=== PATIENT | male | born 1975 | race Caucasian/White ===

== ENCOUNTER 2020-02-15 17:24 | Emergency (ER) | payer BC ==
[2020-02-15] MEDS ORDERED: Clindamycin HCl 150 MG Cap PO ONE (17:25)
--- NOTE | 2020-02-15 17:30 | EDM.PDOC ---
ED HPI GENERAL MEDICAL PROBLEM - General Chief Complaint: General Stated Complaint: ? boil Time Seen by Provider: 02/15/20 17:27 Source of Information: Reports: Patient History Limitations: Reports: No Limitations - History of Present Illness INITIAL COMMENTS - FREE TEXT/NARRATIVE: This patient is a 44 year old male that presents to the ER. Patient reports that for several weeks he had a spot in his back. He reports over the past week or so, its become more painful. He reports he tried to stick it with two needles. Now it is red. Duration: Week(s): ("several weeks"), Getting Worse Location: Reports: Back Front/Back Body Image: 1 - small red inflamed, hard area. Severity: Mild Improves with: Reports: None Worsens with: Reports: None Associated Symptoms: Denies: Confusion, Chest Pain, Cough, cough w sputum, Diaphoresis, Fever/Chills, Headaches, Loss of Appetite, Malaise, Nausea/Vomiting , Rash, Seizure, Shortness of Breath, Syncope, Weakness Left Lower Back Pain Score (Numeric/FACES): 8 - Related Data Allergies Allergy/AdvReac Type Severity Reaction Status Date / Time No Known Allergies Allergy Verified 02/15/20 17:26 Home Meds: Home Meds Clindamycin HCl 300 mg PO QID #22 capsule 02/15/20 [Rx] Social & Family History - Tobacco Use Smoking Status *Q: Current Every Day Smoker Years of Tobacco use: 23 Packs/Tins Daily: 1 - Caffeine Use Caffeine Use: Reports: Soda - Recreational Drug Use Recreational Drug Use: No ED ROS GENERAL - Review of Systems Review Of Systems: See Below Constitutional: Reports: No Symptoms. Denies: Fever HEENT: Reports: No Symptoms Respiratory: Reports: No Symptoms Cardiovascular: Reports: No Symptoms Endocrine: Reports: No Symptoms GI/Abdominal: Reports: No Symptoms : Reports: No Symptoms Musculoskeletal: Reports: No Symptoms Skin: Reports: Erythema (lower left central back red, raised area. ) Neurological: Reports: No Symptoms Psychiatric: Reports: No Symptoms Hematologic/Lymphatic: Reports: No Symptoms Immunologic: Reports: No Symptoms ED EXAM, GENERAL - Physical Exam Exam: See Below Exam Limited By: No Limitations General Appearance: Alert, WD/WN, No Apparent Distress Respiratory/Chest: No Respiratory Distress, Lungs Clear, Normal Breath Sounds, No Accessory Muscle Use Cardiovascular: Normal Peripheral Pulses, Regular Rate, Rhythm, No Edema, No Gallop, No JVD, No Murmur, No Rub Peripheral Pulses: 2+: Radial (L), Radial (R) Back Exam: Full Range of Motion, Other (see skin). No: Paraspinal Tenderness, Vertebral Tenderness Extremities: Normal Inspection, Normal Range of Motion, Non-Tender, No Pedal Edema, Normal Capillary Refill Neurological: Alert, Oriented Psychiatric: Normal Affect, Normal Mood Skin Exam: Warm, Dry, Intact, Normal Color, No Rash, Erythema (left lower back small about nickel size circular red raised area, with two small puncture sites consistent with needle. Mild surrounding redness small. No fluctulance to drain. Hard and ore cellulitic.) Lymphatic: No Adenopathy Course - Vital Signs Last Recorded V/S: Last Vital Signs Temp 96.7 F L 02/15/20 17:24 Pulse 75 02/15/20 17:24 Resp 16 02/15/20 17:24 BP 146/78 H 02/15/20 17:24 Pulse Ox 97 02/15/20 17:24 - Orders/Labs/Meds Meds: Medications Discontinued Medications Generic Name Dose Route Start Last Admin Trade Name Angelq PRN Reason Stop Dose Admin Clindamycin HCl 2 packet 02/15/20 17:36 02/15/20 17:41 Take Home: Clindamycin Hcl 150 Mg, 6 Cap Pack PO 02/15/20 17:37 2 packet ONETIME ONE Administration Departure - Departure Time of Disposition: 17:44 Disposition: Home, Self-Care 01 Condition: Good Clinical Impression: Cellulitis Qualifiers: Site of cellulitis: trunk Site of cellulitis of trunk: back Qualified Code(s): L03.312 - Cellulitis of back [any part except buttock] - Discharge Information *PRESCRIPTION DRUG MONITORING PROGRAM REVIEWED*: Not Applicable *COPY OF PRESCRIPTION DRUG MONITORING REPORT IN PATIENT TYSHAWN: Not Applicable Prescriptions: Clindamycin HCl 300 mg PO QID #22 capsule Instructions: Cellulitis, Adult, [id number] Forms: ED Department Discharge Additional Instructions: Followup with your primary care provider Sunday/Sunday for recheck Return to the ER for worsening of condition or any emergent concerns such as fever, vomiting, significant increase in redness Clindamycin 150mg 2 pills four times a day until gone #12 take home: 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
[2020-02-15] MEDS ORDERED: Take Home: Clindamycin HCl 150 MG Cap, 6 Cap Pack PO ONE (17:36)
== END 2020-02-15 17:50 | disposition home or self-care (01) ==
LOC: CC.ED 17:24
DX: L03.312 Cellulitis of back [any part except buttock and flank] (principal); F17.210 Nicotine dependence, cigarettes, uncomplicated
CPT/HCPCS: 99283; A9270-GY

== ENCOUNTER 2020-02-17 17:43 | Emergency (ER) | payer BC ==
[2020-02-17] MEDS ORDERED: Lidocaine 1% with EPINEPHrine 1:100,000 20 ML MDV INJECT ONE (18:08)
--- NOTE | 2020-02-17 18:13 | EDM.PDOC ---
ED HPI GENERAL MEDICAL PROBLEM - General Chief Complaint: General Stated Complaint: boil Time Seen by Provider: 02/17/20 18:06 Source of Information: Reports: Patient History Limitations: Reports: No Limitations - History of Present Illness INITIAL COMMENTS - FREE TEXT/NARRATIVE: Felipe is a 44 yo male who presents to the ED with concerns of a boil to his low back. States he was seen on Sunday in the ED and was given clindamycin. States it started festering on Sunday the 12 of February. Admits since Sunday it continues to get worse and is in a lot of discomfort from it. He denies any fevers. States he has had a headache the last few days but hasn't been getting any sleep d/t the discomfort. Admits he can't lay down. Location: Reports: Back Left Lower Back Pain Score (Numeric/FACES): 8 - Related Data Allergies Allergy/AdvReac Type Severity Reaction Status Date / Time No Known Allergies Allergy Verified 02/17/20 17:49 Home Meds: Home Meds Clindamycin HCl 300 mg PO QID #22 capsule 02/15/20 [Rx] Past Medical History - Infectious Disease History Infectious Disease History: Reports: None - Past Surgical History Musculoskeletal Surgical History: Reports: Other (See Below) Other Musculoskeletal Surgeries/Procedures:: knee and foot surgery Social & Family History - Tobacco Use Smoking Status *Q: Current Every Day Smoker Years of Tobacco use: 20 Packs/Tins Daily: 1 - Caffeine Use Caffeine Use: Reports: Soda - Recreational Drug Use Recreational Drug Use: No ED ROS GENERAL - Review of Systems Review Of Systems: Comprehensive ROS is negative, except as noted in HPI. Constitutional: Denies: Fever, Chills, Fatigue, Weight Loss HEENT: Reports: No Symptoms Respiratory: Reports: No Symptoms Cardiovascular: Reports: No Symptoms GI/Abdominal: Reports: No Symptoms : Reports: No Symptoms Musculoskeletal: Reports: Back Pain Skin: Reports: Lumps (low left back) Neurological: Reports: No Symptoms Psychiatric: Reports: No Symptoms ED EXAM, GENERAL - Physical Exam Exam: See Below Exam Limited By: No Limitations General Appearance: Alert, WD/WN, Mild Distress Skin Exam: Erythema (2cm boil to left low back with surrounding erythema measuring 8cm X 4cm. Area tender to palpation. Hard center), Increased Warmth, Wound/Incision ED I&D PROCEDURES - I&D Site: left low back Skin prep: Providone-Iodine (Betadine) Local anesthesia - Lidocaine (Xylocaine): 1% with EPI Local Anesthetic Volume: 5cc Area Incised With: 11 Blade (1cm in length incision X 1/2 cm deep) Drainage: Purulent, Bloody, Moderate Amount Probed to Break Up Loculations: Yes Packed With: 1/4 in. Iodoform Sterile Dressing: Adhesive Dressing, 4x4(s) Complications: No Course - Vital Signs Last Recorded V/S: Last Vital Signs Temp 98.2 F 02/17/20 17:44 Pulse 88 02/17/20 17:44 Resp 16 02/17/20 17:44 BP 142/83 H 02/17/20 17:44 Pulse Ox 98 02/17/20 17:44 - Orders/Labs/Meds Orders: Active Orders 24 hr Category Date Time Status Lidocaine 1% w/EPINEPHrine [Xylocaine 1% with Med 02/17/20 18:08 Once EPINEPHrine 1:100,000] 20 ml INJECT ONETIME ONE Departure - Departure Time of Disposition: 18:45 Disposition: Home, Self-Care 01 Clinical Impression: Abscess of lower back - Discharge Information Instructions: Incision and Drainage, Care After, Skin Abscess, [id number] Additional Instructions: 1) Keep bandage in place tonight 2) Follow up appointment tomorrow with Rosa Lnider at3:00pm for packing removal/ recheck 3) Continue with current antibiotic 4) Recommend taking 1000mg of Tylenol with 400-600mg of ibuprofen every 6 hours as needed. No more than 4000mg of Tylenol in 24 hours. Stephanie may have Tylenol (acetaminophen). 5) If any complications or concerns, advise reevaluation in ED Sepsis Event Note - Evaluation Sepsis Screening Result: No Definite Risk - Focused Exam Vital Signs: Vital Signs Temp Pulse Resp BP Pulse Ox 02/17/20 17:44 98.2 F 88 16 142/83 H 98 Date Exam was Performed: 02/17/20 Time Exam was Performed: 18:08 - Problem List & Annotations (1) Abscess of lower back SNOMED Code(s): 187894379 Code(s): L02.212 - CUTANEOUS ABSCESS OF BACK [ANY PART, EXCEPT BUTTOCK] Status: Acute (2) Cellulitis SNOMED Code(s): 551369746 Code(s): L03.90 - CELLULITIS, UNSPECIFIED Status: Acute Qualifiers: Site of cellulitis: trunk Site of cellulitis of trunk: back Qualified Code(s): L03.312 - Cellulitis of back [any part except buttock] - My Orders Last 24 Hours: My Active Orders 02/17/20 18:08 Lidocaine 1% w/EPINEPHrine [Xylocaine 1% with EPINEPHrine 1:100,000] 20 ml INJECT ONETIME ONE - Assessment/Plan Last 24 Hours: My Active Orders 02/17/20 18:08 Lidocaine 1% w/EPINEPHrine [Xylocaine 1% with EPINEPHrine 1:100,000] 20 ml INJECT ONETIME ONE Plan: Discussed findings with Felipe. Elected to proceed with I&D. No significant complications. Mild bleeding noted. Adhesive bandage applied. See procedure note and additional instructions for post care.
== END 2020-02-17 18:54 | disposition home or self-care (01) ==
LOC: CC.ED 17:43
DX: L02.212 Cutaneous abscess of back [any part, except buttock and flank] (principal); F17.210 Nicotine dependence, cigarettes, uncomplicated
CPT/HCPCS: 10061; 87070; 99283-25

== ENCOUNTER 2020-05-17 07:09 | Emergency (ER) | payer BC ==
[2020-05-17] MEDS ORDERED: Morphine 4 MG/ML VIAL IVPUSH ONE (08:04)
[2020-05-17] MEDS ORDERED: Ondansetron 4 MG/2 ML SDV IVPUSH STA (08:04)
[2020-05-17] MEDS ORDERED: Sodium Chloride 0.9% 1,000 ML IV ONE (08:05)
[2020-05-17] MEDS ORDERED: Iopamidol 755 Mg/ML 100 ML Bottle IVPUSH ONE (08:13)
--- NOTE | 2020-05-17 08:28 | EDM.PDOC ---
ED HPI GENERAL MEDICAL PROBLEM - General Chief Complaint: Abdominal Pain Stated Complaint: RT SIDE IS HURTING Time Seen by Provider: 05/17/20 07:55 Source of Information: Reports: Patient History Limitations: Reports: No Limitations - History of Present Illness INITIAL COMMENTS - FREE TEXT/NARRATIVE: This patient is a 44 year old male that presents to the ER. Patient reports that started yesterday at 3pm yesterday with right sided abdominal pain. Patient reports having nausea. Patient reports that he has been diaphoretic at times and decreased appetite. Patient reports the pain has been constant and worsened as time has progressed. Onset Date: 05/16/20 Onset Time: 15:00 Location: Reports: Abdomen Severity: Moderate Improves with: Reports: None Worsens with: Reports: None Associated Symptoms: Reports: Diaphoresis, Loss of Appetite, Nausea/Vomiting. Denies: Confusion, Chest Pain, Cough, cough w sputum, Fever/Chills, Headaches, Malaise, Rash, Seizure, Shortness of Breath, Syncope, Weakness Treatments OCCUPATIONAL THERAPIST HOME BASED: Reports: Other (see below) Other Treatments OCCUPATIONAL THERAPIST HOME BASED: DRANK A COKE TO SEE IF IT WOULD HELP, NO RELIEF Right Lower Abdomen Pain Score (Numeric/FACES): 4 - Related Data Allergies Allergy/AdvReac Type Severity Reaction Status Date / Time No Known Allergies Allergy Verified 05/17/20 07:34 Home Meds: Home Meds . [No Known Home Meds] 05/17/20 [History] Past Medical History HEENT History: Reports: Sinusitis, Other (See Below) Other HEENT History: frequent ear infections and sinus infections Genitourinary History: Reports: Other (See Below) Other Genitourinary History: patient states he has always been told he has trace blood in his urine each time he has lab/urine done Musculoskeletal History: Reports: Fracture - Infectious Disease History Infectious Disease History: Reports: None - Past Surgical History HEENT Surgical History: Reports: None Musculoskeletal Surgical History: Reports: Other (See Below) Other Musculoskeletal Surgeries/Procedures:: knee and foot surgery Social & Family History - Tobacco Use Smoking Status *Q: Current Every Day Smoker Years of Tobacco use: 25 Packs/Tins Daily: 1.5 - Caffeine Use Caffeine Use: Reports: Soda - Recreational Drug Use Recreational Drug Use: No ED ROS GENERAL - Review of Systems Review Of Systems: See Below Constitutional: Reports: Diaphoresis, Decreased Appetite. Denies: Fever HEENT: Reports: No Symptoms Respiratory: Reports: No Symptoms Cardiovascular: Reports: No Symptoms Endocrine: Reports: No Symptoms GI/Abdominal: Reports: Abdominal Pain, Nausea. Denies: Constipation, Diarrhea, Vomiting : Reports: No Symptoms Musculoskeletal: Reports: No Symptoms Skin: Reports: No Symptoms Neurological: Reports: No Symptoms Psychiatric: Reports: No Symptoms Hematologic/Lymphatic: Reports: No Symptoms Immunologic: Reports: No Symptoms ED EXAM, GI/ABD - Physical Exam Exam: See Below Exam Limited By: No Limitations General Appearance: Alert, WD/WN, No Apparent Distress Eyes: Bilateral: Normal Appearance Ears: Normal External Exam, Normal Canal, Hearing Grossly Normal, Normal TMs Nose: Normal Inspection, Normal Mucosa, No Blood Throat/Mouth: Normal Inspection, Normal Lips, Normal Teeth, Normal Gums, Normal Oropharynx, Normal Voice, No Airway Compromise Head: Atraumatic, Normocephalic Neck: Normal Inspection, Supple, Non-Tender, Full Range of Motion Respiratory/Chest: No Respiratory Distress, Lungs Clear, Normal Breath Sounds, No Accessory Muscle Use Cardiovascular: Normal Peripheral Pulses, Regular Rate, Rhythm, No Edema, No Gallop, No JVD, No Murmur, No Rub GI/Abdominal Exam: Normal Bowel Sounds, Soft, Rebound, Tender (RUQ, RLQ, Umbilical.). No: Guarding Back Exam: Normal Inspection, Full Range of Motion. No: CVA Tenderness (L), CVA Tenderness (R) Extremities: Normal Inspection, Normal Range of Motion, Non-Tender, No Pedal Edema, Normal Capillary Refill Neurological: Alert, Oriented Psychiatric: Normal Affect, Normal Mood Skin Exam: Warm, Dry, Intact, Normal Color, No Rash Course - Vital Signs Last Recorded V/S: Last Vital Signs Temp 98.4 F 05/17/20 07:28 Pulse 81 05/17/20 07:28 Resp 16 05/17/20 07:28 BP 136/82 05/17/20 07:28 Pulse Ox 98 05/17/20 07:28 - Orders/Labs/Meds Orders: Active Orders 24 hr Category Date Time Status Abdomen Pelvis w Cont [CT] Stat Exams 05/17/20 08:04 Taken CULTURE BLOOD [BC] Stat Lab 05/17/20 11:10 Received LACTIC ACID [CHEM] Stat Lab 05/17/20 11:10 Received Blood Culture x2 Reflex Set [OM.PC] Stat Oth 05/17/20 10:42 Ordered Labs: Laboratory Tests 05/17/20 05/17/20 05/17/20 Range/Units 08:12 08:12 08:25 WBC 15.7 H (5.0-10.0) 10^3/uL RBC 4.57 (4.50-6.00) 10^6/uL Hgb 13.9 L (14.0-18.0) g/dL Hct 41.0 (40.0-54.0) % MCV 89.7 (82.0-94.0) fL MCH 30.4 (27.0-32.0) pg MCHC 33.9 (33.0-38.0) g/dL RDW Coeff of Tre 13.6 (11.0-15.0) % Plt Count 285 (150-400) 10^3/uL Neut % (Auto) 73.1 (35-85) % Lymph % (Auto) 13.6 (10-55) % [place] % (Auto) 9.2 (0-16) % Eos % (Auto) 3.6 (0-5) % Baso % (Auto) 0.5 (0-3) % Neut # (Auto) 11.46 H (1.80-7.00) 10^3/uL Lymph # (Auto) 2.14 (1.00-4.80) 10^3/uL [place] # (Auto) 1.45 H (0.00-0.80) 10^3/uL Eos # (Auto) 0.56 H (0.00-0.45) 10^3/uL Baso # (Auto) 0.08 10^3/uL Sodium 139 (136-145) mEq/L Potassium 4.4 (3.5-5.0) mEq/L Chloride 107 H (98-106) mEq/L Carbon Dioxide 27 (21-32) mmol/L BUN 13 (7-18) mg/dL Creatinine 0.9 (0.7-1.3) mg/dL Est Cr Clr Drug Dosing 109.27 mL/min Estimated GFR (MDRD) > 60 (>=60) mL/min Glucose 112 H (75-99) mg/dL Calcium 8.5 (8.4-10.1) mg/dL Total Bilirubin 1.3 H (0.0-1.0) mg/dL AST 13 L (15-37) U/L ALT 22 (12-78) U/L Alkaline Phosphatase 89 (46-116) U/L Total Protein 6.6 (6.4-8.2) g/dL Albumin 3.4 (3.4-5.0) g/dL Amylase 44 (25-115) U/L Lipase 62 L (73-393) U/L Urine Color Judith (YELLOW) Urine Appearance Slightly cloudy (CLEAR) Urine pH 5.5 (4.5-8.0) Ur Specific [place] 1.025 H (1.003-1.020) Urine Protein Negative (NEGATIVE) mg/dL Urine Glucose (UA) Negative (NEGATIVE) mg/dL Urine Ketones Negative (NEGATIVE) mg/dL Urine Occult Blood Moderate H (NEGATIVE) Urine Nitrite Negative (NEGATIVE) Urine Bilirubin Negative (NEGATIVE) Urine Urobilinogen 0.2 (0.2-1.0) EU/dL Ur Leukocyte Esterase Negative (NEGATIVE) Urine RBC 10-20 H (0-5) /HPF Urine WBC 0-5 (0-5) /HPF Meds: Medications Discontinued Medications Generic Name Dose Route Start Last Admin Trade Name Freq PRN Reason Stop Dose Admin Sodium Chloride 1,000 mls @ 1,000 mls/hr 05/17/20 08:05 05/17/20 08:14 Normal Saline IV 05/17/20 09:04 1,000 mls/hr .BOLUS ONE Administration Piperacillin Sod/Tazobactam 100 mls @ 200 mls/hr 05/17/20 10:32 05/17/20 11:05 Sod 4.5 gm/ Sodium Chloride IV 05/17/20 11:01 200 mls/hr STAT ONE Administration Iopamidol 100 ml 05/17/20 08:13 05/17/20 08:33 Isovue-370 (76%) IVPUSH 05/17/20 08:14 100 ml ONETIME ONE Administration Morphine Sulfate 4 mg 05/17/20 08:04 05/17/20 08:13 Morphine IVPUSH 05/17/20 08:05 4 mg ONETIME ONE Administration Ondansetron HCl 4 mg 05/17/20 08:04 05/17/20 08:11 Zofran IVPUSH 05/17/20 08:05 4 mg NOW STA Administration - Radiology Interpretation Free Text/Narrative:: CT Abd/Pelvis: Acute appendicitis CT Results Date: 05/17/20 CT Results Time: 10:00 - Re-Assessments/Exams Free Text/Narrative Re-Assessment/Exam: 05/17/20 10:00am Patient originally requested transfer to [place]. I called and spoke to surgeon who requested [facility] to be hung and transferred 05/17/20 11:00am Patient has changed his mind on location of transfer and now request [place]. I called and spoke to Dr. Schaefer surgeon who reports to send the patient to the ER. I spoke to ER physician who reports to send him. 05/17/20 11:26 Patient explained risk vs benefits of transfer and has accepted the risks. Risk includes mvc, , worsening of condition or pain. Risk of staying in [place] include worsening of condition, sepsis, . The benefits of staying in [place] is close to home. The benefits of transfer are surgeon. Departure - Departure Time of Disposition: 10:30 Disposition: DC/Tfer to [facility] 02 Condition: Fair Clinical Impression: Appendicitis Qualifiers: Appendicitis type: acute appendicitis Acute appendicitis type: unspecified acute appendicitis type Qualified Code(s): K35.80 - Unspecified acute appendicitis - Discharge Information *PRESCRIPTION DRUG MONITORING PROGRAM REVIEWED*: Not Applicable *COPY OF PRESCRIPTION DRUG MONITORING REPORT IN PATIENT TYSHAWN: Not Applicable Forms: ED Department Discharge Sepsis Event Note (ED) - Evaluation Sepsis Screening Result: No Definite Risk - Focused Exam Vital Signs: Vital Signs Temp Pulse Resp BP Pulse Ox 05/17/20 07:28 98.4 F 81 16 136/82 98 - My Orders Last 24 Hours: My Active Orders 05/17/20 08:04 Abdomen Pelvis w Cont [CT] Stat 05/17/20 10:42 Blood Culture x2 Reflex Set [OM.PC] Stat 05/17/20 11:10 CULTURE BLOOD [BC] Stat LACTIC ACID [CHEM] Stat - Assessment/Plan Last 24 Hours: My Active Orders 05/17/20 08:04 Abdomen Pelvis w Cont [CT] Stat 05/17/20 10:42 Blood Culture x2 Reflex Set [OM.PC] Stat 05/17/20 11:10 CULTURE BLOOD [BC] Stat LACTIC ACID [CHEM] Stat Plan: PLEASE SEE RN NOTE FOR PFSH.
[2020-05-17 08:31] LABS: CHLORIDE,CL 107 mEq/L (98-106); SODIUM,NA 139 mEq/L (136-145)
[2020-05-17] MEDS ORDERED: Piperacillin/Tazobactam 4.5 GM in Sodium Chloride 0.9% 100 ML IV ONE (10:32)
== END 2020-05-17 11:55 ==
LOC: CC.ED 07:09
DX: K35.80 Unspecified acute appendicitis (principal); F17.210 Nicotine dependence, cigarettes, uncomplicated
CPT/HCPCS: 36415; 74177; 80053; 81001; 82150; 83605; 83690; 85025; 87040; 96361; 96365; 96375; 99285-25; J2270; J2405; J2543; J7030; J7050; Q9967

== ENCOUNTER 2020-05-28 18:32 | Emergency (ER) | payer BC ==
[2020-05-28] MEDS ORDERED: Diphtheria,Pertussis(Acell),Tetanus Vaccine 0.5 ML Syringe IM ONE (18:36)
--- NOTE | 2020-05-28 18:59 | EDM.PDOC ---
ED HPI GENERAL MEDICAL PROBLEM - General Chief Complaint: General Stated Complaint: Stepped on Nail Time Seen by Provider: 05/28/20 18:51 Source of Information: Reports: Patient History Limitations: Reports: No Limitations - History of Present Illness INITIAL COMMENTS - FREE TEXT/NARRATIVE: This patient is a 44 year old male that presents to the ER. Patient reports stepping on a nail to the right foot. Patient reports he was wearing boots and the nail was old and dirty. Denies other injuries. Onset: Today Onset Date: 05/28/20 Duration: Hour(s): (1) Location: Reports: Lower Extremity, Right (foot) Front/Back Body Image: 1 - puncture wound Severity: Moderate Improves with: Reports: None Worsens with: Reports: None Associated Symptoms: Reports: No Other Symptoms. Denies: Diaphoresis, Fever/Chills, Nausea/Vomiting - Related Data Allergies Allergy/AdvReac Type Severity Reaction Status Date / Time No Known Allergies Allergy Verified 05/28/20 18:33 Home Meds: Home Meds Sulfamethoxazole/Trimethoprim [Bactrim Ds Tablet] 1 each PO BID #20 tablet 05/28/20 [Rx] Past Medical History - Past Health History Medical/Surgical History: Denies Medical/Surgical History HEENT History: Reports: Sinusitis, Other (See Below) Other HEENT History: frequent ear infections and sinus infections Genitourinary History: Reports: Other (See Below) Other Genitourinary History: patient states he has always been told he has trace blood in his urine each time he has lab/urine done Musculoskeletal History: Reports: Fracture - Infectious Disease History Infectious Disease History: Reports: None - Past Surgical History HEENT Surgical History: Reports: None Musculoskeletal Surgical History: Reports: Other (See Below) Other Musculoskeletal Surgeries/Procedures:: knee and foot surgery Social & Family History - Family History Family Medical History: Noncontributory - Tobacco Use Smoking Status *Q: Current Every Day Smoker Years of Tobacco use: 20 Packs/Tins Daily: 1 - Caffeine Use Caffeine Use: Reports: None - Recreational Drug Use Recreational Drug Use: No ED ROS GENERAL - Review of Systems Review Of Systems: See Below Constitutional: Reports: No Symptoms HEENT: Reports: No Symptoms Respiratory: Reports: No Symptoms Cardiovascular: Reports: No Symptoms Musculoskeletal: Reports: Foot Pain (right foot) Skin: Reports: Wound (right foot bottom nail wound) Neurological: Reports: No Symptoms Psychiatric: Reports: No Symptoms ED EXAM, GENERAL - Physical Exam Exam: See Below Exam Limited By: No Limitations General Appearance: Alert, WD/WN, No Apparent Distress Eye Exam: Bilateral Eye: Normal Inspection Ear Exam: Bilateral Ear: Auricle Normal Nose: Normal Inspection Throat/Mouth: Normal Inspection, Normal Lips Head: Atraumatic, Normocephalic Respiratory/Chest: No Respiratory Distress, Lungs Clear Cardiovascular: Normal Peripheral Pulses, Regular Rate, Rhythm Peripheral Pulses: 2+: Posterior Tibial (L), Posterior Tibial (R), Dorsalis Pedis (R) Extremities: Normal Range of Motion, No Pedal Edema, Normal Capillary Refill, Ot her (small puncture wound site right bottom about mid 5th metatarsal region. No bleeding. No FB seen. Sensory/motor function intact. Neurovascular intact. Pulses +2, cap refill < 2 sec. ) Psychiatric: Normal Affect, Normal Mood Skin Exam: Warm, Dry, Normal Color, No Rash, Wound/Incision (puncuture wound right foot.) Course - Vital Signs Last Recorded V/S: Last Vital Signs Temp 98.9 F 05/28/20 18:29 Pulse 91 05/28/20 18:29 Resp 16 05/28/20 18:29 BP 155/91 H 05/28/20 18:29 Pulse Ox 96 05/28/20 18:29 - Orders/Labs/Meds Orders: Active Orders 24 hr Category Date Time Status Vaccines to be Administered [RC] PER UNIT ROUTINE Care 05/28/20 18:37 Active Foot Comp Min 3V Rt [CR] Stat Exams 05/28/20 18:51 Ordered Meds: Medications Discontinued Medications Generic Name Dose Route Start Last Admin Trade Name Freq PRN Reason Stop Dose Admin Diphtheria/Tetanus/Acell Pertussis 0.5 ml 05/28/20 18:36 05/28/20 18:58 Adacel IM 05/28/20 18:37 0.5 ml .ONCE ONE Administration - Radiology Interpretation Free Text/Narrative:: Right foot xray: No FB. No FX. No dislocation. - Re-Assessments/Exams Free Text/Narrative Re-Assessment/Exam: 05/28/20 19:02 Wound washed with soap and water in ER. Patient offered post op shoe. Departure - Departure Time of Disposition: 19:10 Disposition: Home, Self-Care 01 Condition: Fair Clinical Impression: Puncture wound of foot Qualifiers: Encounter type: initial encounter Laterality: right Qualified Code(s): S91.331A - Puncture wound without foreign body, right foot, initial encounter - Discharge Information *PRESCRIPTION DRUG MONITORING PROGRAM REVIEWED*: Not Applicable *COPY OF PRESCRIPTION DRUG MONITORING REPORT IN PATIENT TYSHAWN: Not Applicable Prescriptions: Sulfamethoxazole/Trimethoprim [Bactrim Ds Tablet] 1 each PO BID #20 tablet Instructions: Puncture Wound, [id number] Forms: ED Department Discharge Additional Instructions: Followup with primary care provider in 5 days for recheck Return to the ER for worsening of condition or any emergent concerns such as redness, drainage, fever, vomiting Wash the wound with soap and water twice a day, rinse, pat dry. Keep clean Bactrim DS 1 pill twice a day for 10 days #20 no refill: Sent to [facility] Tylenol or Motrin for pain Tetanus given in ER Sepsis Event Note (ED) - Evaluation Sepsis Screening Result: No Definite Risk - Focused Exam Vital Signs: Vital Signs Temp Pulse Resp BP Pulse Ox 05/28/20 18:29 98.9 F 91 16 155/91 H 96 - My Orders Last 24 Hours: My Active Orders 05/28/20 18:51 Foot Comp Min 3V Rt [CR] Stat - Assessment/Plan Last 24 Hours: My Active Orders 05/28/20 18:51 Foot Comp Min 3V Rt [CR] Stat Plan: PLEASE SEE RN NOTE FOR PFSH.
== END 2020-05-28 19:30 | disposition home or self-care (01) ==
LOC: CC.ED 18:32
DX: S91.331A Puncture wound without foreign body, right foot, initial encounter (principal); F17.210 Nicotine dependence, cigarettes, uncomplicated; Z23 Encounter for immunization; W45.0XXA Nail entering through skin, initial encounter
CPT/HCPCS: 73630-RT; 90471; 90715; 99283-25

== ENCOUNTER 2025-04-29 21:36 | Emergency (ER) | payer BC, OTHER ==
[2025-04-29 21:56] LABS: BASOPHILS ABSOLUTE AUTO 0.04 10^3/uL (0.00-0.50); BASOPHILS PERCENT AUTO 0.3 % (0-1); EOSINOPHILS ABSOLUTE AUTO 0.28 10^3/uL (0.00-1.50); EOSINOPHILS PERCENT AUTO 2.4 % (0-6); IMMATURE GRAN ABSOLUTE AUTO 0.02 10^3/uL (0.00-0.49); IMMATURE GRAN PERCENT AUTO 0.2 % (0.0-4.9); LYMPHOCYTES ABSOLUTE AUTO 3.70 10^3/uL (0.60-5.00); LYMPHOCYTES PERCENT AUTO 32.0 % (24-44); MONOCYTES ABSOLUTE AUTO 1.10 10^3/uL (0.00-1.50); MONOCYTES PERCENT AUTO 9.5 % (0-10); NEUTROPHILS ABSOLUTE AUTO 6.41 x10^3/uL (1.80-8.00); NEUTROPHILS PERCENT AUTO 55.6 % (41-71); PLATELET COUNT,PLT 263 10^3/uL (150-400); RED BLOOD CELL COUNT 4.52 x10^6/uL (4.50-6.00); WHITE BLOOD CELL COUNT,WBC 11.6 10^3/uL (4.0-11.0)
[2025-04-29 22:12] LABS: ALANINE AMINOTRANSFERASE,ALT 20 U/L (12-78); ASPARTATE AMNIOTRANSFERASE,AST 9 U/L (15-37); BILIRUBIN TOTAL 0.8 mg/dL (0.0-1.0); BLOOD UREA NITROGEN,BUN 20 mg/dL (7-18); CARBON DIOXIDE,CO2 26 mmol/L (21-32); CHLORIDE,CL 103 mEq/L (98-106); CREATININE 1.0 mg/dL (0.7-1.3); EST CRCL DRUG DOSING (CG) 93.28 mL/min; GLUCOSE RANDOM 101 mg/dL (75-99); POTASSIUM,K 4.1 mEq/L (3.5-5.0); PROTEIN TOTAL,TP 6.9 g/dL (6.4-8.2); SODIUM,NA 139 mEq/L (136-145)
[2025-04-29 22:13] LABS: ESTIMATED GFR 93 mL/min (>=60)
== END 2025-04-29 22:27 | disposition home or self-care (01) ==
LOC: CC.ED 21:36
DX: R07.89 Other chest pain (principal); Z79.899 Other long term (current) drug therapy
CPT/HCPCS: 36415; 71046; 80053; 83690; 83735; 84484; 85025; 86140; 93005; 99285